=== PATIENT | female | born 1995 | race Caucasian/White ===

== ENCOUNTER 2016-10-16 15:44 | Emergency (ER) | payer OTHER ==
[~2016-10-16] VITALS: Ht 162.6 cm; Wt 70.9 kg
[2016-10-16] MEDS ORDERED: FLEXERIL10 MG PO (17:31)
[2016-10-16 17:40] VITALS: BP 142/63
== END 2016-10-16 17:40 | disposition home or self-care (01) ==
LOC: RME 15:44
DX: M54.2 Cervicalgia (principal); M54.5 Low back pain; V49.50XA Passenger injured in collision with unspecified motor vehicles in traffic accident, initial encounter; F17.200 Nicotine dependence, unspecified, uncomplicated
CPT/HCPCS: 70450; 72100; 72125; 99281; 99284